=== PATIENT | female | born 2000 | race Caucasian/White ===

== ENCOUNTER 2021-03-05 15:36 | Inpatient (IN) ==
[2021-03-05] MEDS ORDERED: DEXTROSE 5%-LACTATED RINGERS 1,000 ML IV PRN (15:41)
[2021-03-05] MEDS ORDERED: OXYTOCIN/0.9 % SODIUM CHLORIDE 30 UNITS/500 ML BAG IV ONE (15:41)
[2021-03-05] MEDS ORDERED: RINGER'S SOLUTION,LACTATED 1,000 ML IV ONE (15:41)
[2021-03-05] MEDS ORDERED: ONDANSETRON 4 MG TAB.RAPDIS PO PRN (15:41)
[2021-03-05 16:14] LABS: Random Urine Total Protein Less than 6.0 mg/dL (0-12)
[2021-03-05 16:15] LABS: Hematocrit 39.4 % (37.0-47.0); Hemoglobin 12.1 gm/dL (12.5-16.0); Mean Cell Volume 84.7 fl (78-100); Mean Corpuscular Hgb Conc 30.7 g/dl (32-36); Mean Platelet Volume 10.9 fl (8-12.5); Neutrophil # 6.1 K/mm3 (1.3-6.0); Neutrophil % 62.1 % (42-75.0); Platelet Count 210 K/mm3 (150-450); Red Blood Count 4.65 M/mm3 (4.2-5.4); Red Cell Distribution Width 14.8 % (11.5-14.0); White Blood Count 9.8 K/mm3 (4.0-10.5)
[2021-03-05 16:16] LABS: Albumin * 2.7 gm/dl (3.4-5.0); Anion Gap 13.7 mmol/L (6.8-13.8); BUN/Creatinine Ratio 8.8 (9.0-21.6); Bilirubin, Total 0.3 mg/dL (0.0-1.1); Ca. Corrected For Albumin 9.8 mg/dL (8.4-10.2); Calcium * 9.1 mg/dL (7.9-10.9); Carbon Dioxide 24.4 mmol/L (24-32.6); Potassium 4.1 mmol/L (3.4-4.6); Total Protein 6.8 gm/dL (6.2-8.2)
--- NOTE | 2021-03-05 17:23 | HP ---
Chief Complaint - Chief Complaint Date of Service: 03/05/21 Time of Service: 17:15 Chief Complaint: induction of labor for GHTN History of Present Illness: 20 yo at 39w4d admitted for induction/augmentation of labor due to GHTN. Patient c/o irregular, mild contractions over the past couple days. Admits to increased edema. Denies HUTCHINSON, visual changes, epigastric pain. This complicated by GHTN. RH positive Rubella immune GBS negative Medical History (Last Reviewed 03/05/21 @ 17:18 by Denilson Marcus DO) No pertinent past medical history Surgical History: Surgical History (Last Reviewed 03/05/21 @ 17:18 by Denilson Marcus DO) [place] teeth extracted Family History: Family History (Last Reviewed 03/05/21 @ 17:18 by Denilson Marcus DO) Father Depression Bipolar disorder Hypertension Anxiety Sister Bipolar disorder Anxiety Depression Mother Anxiety Depression Bipolar disorder Hypertension Social History: (Last Reviewed 03/05/21 @ 17:18 by Denilson Marcus DO) Social History: Marital status: Single household members: family current occupational status: employed Highest level of school completed/degree received: some college, no degree Service: No Tobacco: Smoking Status: Former smoker Alcohol: alcohol intake: current alcohol intake frequency: a few times a week details: none with Substance Use: substance use type: does not use Dietary Habits: caffeine: Yes caffeine comment: 1/day avg some days 3 Type: carbonated beverages Exercise: Physical activity type: none Personal Safety: victim of physical abuse: No victim of emotional abuse: No victim of sexual abuse: No Review Of Systems (GEN) - Review of Systems Generalized/Overall Review: Present: No Symptoms Reported EENTM: Present: No Symptoms Reported Respiratory: Present: No Symptoms Reported Cardiac: Present: No Symptoms Reported Abdominal: Present: Other - mild contractions Genitourinary: Present: No Symptoms Reported Musculoskeletal: Present: No Symptoms Reported Neurological: Present: No Symptoms Reported Skin: Present: No Symptoms Reported Allergies/Adverse Reactions: Allergies Allergy/AdvReac Type Severity Reaction Status Date / Time Penicillins Allergy Intermediate rash Verified 03/05/21 15:09 Home Medications: HOME MEDICATIONS prenat.vits,elpidio,gap-xllo-hmmup 1 tab PO DAILY 09/26/18 [Last Taken 03/05/21] valacyclovir 500 mg tablet 500 mg PO BID #60 tab 01/29/21 [Last Taken 03/04/21] Exam - Exam Vital Signs: Vital Signs - Last Taken Temp 36.7 C 03/05/21 16:20 Pulse 75 03/05/21 16:20 Resp 18 03/05/21 16:20 BP 122/85 03/05/21 16:20 Pulse Ox 100 03/05/21 16:20 Constitutional: Present: Alert, Oriented x3, Cooperative, No distress ENT Exam: Present: hearing grossly normal Neck: Present: non-tender, trachea midline. Absent: thyromegaly Breasts: Present: Exam deferred Respiratory: Present: lungs clear, no respiratory distress Cardiovascular/Chest: Present: normal peripheral pulses, regular rate, rhythm, edema Abdomen: Present: soft, nontender, no rebound tenderness, other - gravid /Rectal: Present: Other - cervix /-1 Extremity: Present: no calf tenderness, lower extremity edema - 2+ to knee, DTR 3/4, no clonus Skin Exam: Present: normal color, warm/dry, no cyanosis Lymphatic: Present: no adenopathy Neurologic: Present: alert, normal mood/affect, oriented x 3 Appearance: Present: appropriate appearance, appropriate insight Eye contact: Present: cooperative, good eye contact Thoughts: Present: normal thought pattern, normal mood /affect Diagnostic Studies: Abnormal Lab Results 03/05/21 03/05/21 03/05/21 Range/Units 15:40 15:54 15:54 Hgb 12.1 L (12.5-16.0) gm/dL MCH 26.0 L (27-31) pg MCHC 30.7 L (32-36) g/dl RDW 14.8 H (11.5-14.0) % Immature Gran # (Auto) 0.04 H (0.000-0.0310) K/mm3 Monocytes % 9.4 H (0.0-9) % Neutrophils # 6.1 H (1.3-6.0) K/mm3 BUN/Creatinine Ratio 8.8 L (9.0-21.6) Alkaline Phosphatase 207 H (50-170) U/L Albumin 2.7 L (3.4-5.0) gm/dl Ur Random Creatinine 33.4 L (60-200) mg/dL Laboratory Results WBC 9.8 K/mm3 (4.0-10.5) 03/05/21 15:54 RBC 4.65 M/mm3 (4.2-5.4) 03/05/21 15:54 Hgb 12.1 gm/dL (12.5-16.0) L 03/05/21 15:54 Hct 39.4 % (37.0-47.0) 03/05/21 15:54 MCV 84.7 fl (78-100) 03/05/21 15:54 MCH 26.0 pg (27-31) L 03/05/21 15:54 MCHC 30.7 g/dl (32-36) L 03/05/21 15:54 RDW 14.8 % (11.5-14.0) H 03/05/21 15:54 Plt Count 210 K/mm3 (150-450) 03/05/21 15:54 MPV 10.9 fl (8-12.5) 03/05/21 15:54 Immature Gran % (Auto) 0.40 % (0.001-0.429) 03/05/21 15:54 Immature Gran # (Auto) 0.04 K/mm3 (0.000-0.0310) H 03/05/21 15:54 Neutrophils % 62.1 % (42-75.0) 03/05/21 15:54 Lymphocytes % 27.5 % (20-51) 03/05/21 15:54 Monocytes % 9.4 % (0.0-9) H 03/05/21 15:54 Eosinophils % 0.4 % (0.0-3.0) 03/05/21 15:54 Basophils % 0.2 % (0.0-1.0) 03/05/21 15:54 Nucleated RBC % 0.0 k/mm3 (0-1) 03/05/21 15:54 Neutrophils # 6.1 K/mm3 (1.3-6.0) H 03/05/21 15:54 Lymphocytes # 2.68 k/mm3 (1.5-3.5) 03/05/21 15:54 Monocytes # 0.9 k/mm3 (0.0-1.0) 03/05/21 15:54 Eosinophils # 0.0 k/mm3 (0.0-0.7) 03/05/21 15:54 Absolute Basophils 0.0 k/mm3 (0.0-0.1) 03/05/21 15:54 Sodium 139 mmol/L (132-142) 03/05/21 15:54 Plasma Sodium 139 mmol/L (130-142) 03/05/21 15:54 Potassium 4.1 mmol/L (3.4-4.6) 03/05/21 15:54 Chloride 105 mmol/L (97-106) 03/05/21 15:54 Carbon Dioxide 24.4 mmol/L (24-32.6) 03/05/21 15:54 Anion Gap 13.7 mmol/L (6.8-13.8) 03/05/21 15:54 BUN 7 mg/dL (3-23) 03/05/21 15:54 Creatinine 0.80 mg/dL (0.4-1.4) 03/05/21 15:54 Est GFR (Non-Af Amer) 95 mL/min (60-130) 03/05/21 15:54 BUN/Creatinine Ratio 8.8 (9.0-21.6) L 03/05/21 15:54 Random Glucose 93 mg/dL (70-110) 03/05/21 15:54 Calcium 9.1 mg/dL (7.9-10.9) 03/05/21 15:54 Calcium Adj for Albumin 9.8 mg/dL (8.4-10.2) 03/05/21 15:54 Total Bilirubin 0.3 mg/dL (0.0-1.1) 03/05/21 15:54 AST 23 U/L (0-48) 03/05/21 15:54 ALT 24 U/L (19-67) 03/05/21 15:54 Alkaline Phosphatase 207 U/L (50-170) H 03/05/21 15:54 Total Protein 6.8 gm/dL (6.2-8.2) 03/05/21 15:54 Albumin 2.7 gm/dl (3.4-5.0) L 03/05/21 15:54 Ur Random Creatinine 33.4 mg/dL (60-200) L 03/05/21 15:40 U Random Total Protein Less than 6.0 mg/dL (0-12) 03/05/21 15:40 U [place] Prot/Creat Ratio 180 mg/gm (0-199) 03/05/21 15:40 Assessment/Plan - Assessment/Plan (1) Gestational hypertension Assessment: Admit for pitocin augmentation of labor. Preeclampsia labs WNL. Epidural PRN. Problem: Acute Qualifiers: Trimester: third trimester Qualified Code(s): O13.3 - Gestational [-induced] hypertension without significant proteinuria, third trimester (2) First stage of labor established Problem: Acute
--- NOTE | 2021-03-05 18:36 | PN ---
Progess Note - Interim Date: 03/05/21 Time: 18:34 Narrative: 03/05/21 18:34 Patient rating most of her contractions mild with occasional moderate 1. Blood pressures labile ranging from 120s over 80s to 170/93. Pitocin at 4 mu/min. FHT: 130 baseline, moderate variability with good accelerations. Earlier moderate variable decelerations. Contractions q 2-3 min Cervix: 4/90/-1, AROM-clear Impression: Intrauterine at 39 4/7 weeks augmentation/induction of labor for gestational hypertension. Plan: We will start IV fluid bolus and prepare for epidural placement when contractions become more uncomfortable.
[2021-03-05] MEDS ORDERED: BUPIVACAINE HCL/0.9 % NACL/PF 250 ML EP PRN (18:43)
[2021-03-05] MEDS ORDERED: NALOXONE HCL 1 MG/1 ML SYRG IV PRN (18:43)
[2021-03-05] MEDS ORDERED: ONDANSETRON HCL/PF 2 MG/ML VIAL IV PRN (18:43)
[2021-03-05] MEDS ORDERED: BUPIVACAINE HCL/PF 30 ML VIAL EP SCH (18:45)
--- NOTE | 2021-03-05 19:10 | ANES ---
Anesthesia Pre Procedure Eval Vitals/Labs: Last Vital Signs Temp 36.7 C 03/05/21 16:20 Pulse 75 03/05/21 16:20 Resp 18 03/05/21 16:20 BP 122/85 03/05/21 16:20 Pulse Ox 100 03/05/21 16:20 HOME MEDICATIONS prenat.vits,elpidio,may-mtrq-qlanl 1 tab PO DAILY 09/26/18 [Last Taken 03/05/21] valacyclovir 500 mg tablet 500 mg PO BID #60 tab 01/29/21 [Last Taken 03/04/21] Allergies/Adverse Reactions: Allergies Allergy/AdvReac Type Severity Reaction Status Date / Time Penicillins Allergy Intermediate rash Verified 03/05/21 15:09 - Planned Procedure Planned Procedure: gestational hyertension possible pre eclampsia Medical History (Last Reviewed 03/05/21 @ 17:18 by Denilson Marcus DO) No pertinent past medical history Surgical History (Last Reviewed 03/05/21 @ 17:18 by Denilson Marcus DO) [place] teeth extracted Family History (Last Reviewed 03/05/21 @ 17:18 by Denilson Marcus DO) Father Depression Bipolar disorder Hypertension Anxiety Sister Bipolar disorder Anxiety Depression Mother Anxiety Depression Bipolar disorder Hypertension - Anesthesia Assessment and Plan ASA Class: PS, II Anesthesia Type Plan: Epidural
--- NOTE | 2021-03-05 19:36 | ANES ---
Anesthesia Procedure Note Procedure Note: ANESTHESIA PROCEDURE NOTE Date of Procedure: 03/05/2021. Time of procedure: 1924. Performed by: James Walker CRNA Claims Account Manager: None. Preprocedure diagnosis: Active labor. Post procedure diagnosis: Same. Procedure: Insertion of labor epidural. Indications: The patient is a 20-year-old female in active labor requesting labor epidural for pain management. Findings: See below. Details of the procedure: The patient was placed in a sitting position. DuraPrep as well as Betadine swabs X3 was applied to the patient's back. Patient was then draped in a sterile fashion. Lidocaine 1% was infiltrated to the skin and subcutaneous tissues at the level of the L3-4 interspace. The epidural space was identified using a 18-gauge Tuohy needle with eihy-[id number] technique. Epidural catheter was inserted to a depth of 11 centimeters at skin. Negative test dose was elicited using 3 mL of 1.5% preservative-free lidocaine plus epinephrine 1 200,000. The epidural catheter was then taped and secured in place. A loading dose of 8 mL of 0.25% preservative-free bupivacaine was administered to the epidural catheter after negative aspiration for blood and CSF. EBL: Minimal. Fluids: N/A. Specimen: N/A. Post procedure condition: The patient tolerated the procedure well. No complications were noted. Thank you for this consultation. James Walker CRNA
--- NOTE | 2021-03-05 19:37 | ANES ---
Post Anesthesia Assessment - Vital Signs Vitals: Last Vital Signs Temp 36.7 C 03/05/21 16:20 Pulse 75 03/05/21 16:20 Resp 18 03/05/21 16:20 BP 122/85 03/05/21 16:20 Pulse Ox 100 03/05/21 16:20 Airway Patency: Normal - Mental Status Level Of Consciousness: Awake - N/V Assessment Nausea/Vomiting Presence: None Dehydration:: No
[2021-03-05] MEDS ORDERED: CALCIUM CARBONATE 500 MG TAB.CHEW PO ONE (22:35)
[2021-03-06] MEDS ORDERED: OXYTOCIN/0.9 % SODIUM CHLORIDE 30 UNITS/500 ML BAG IV ONE (02:09)
[2021-03-06] MEDS ORDERED: BISACODYL 10 MG SUPP.RECT RC PRN (02:09)
[2021-03-06] MEDS ORDERED: GLYCERIN/WITCH HAZEL LEAF 40 APPL BOX TP PRN (02:09)
[2021-03-06] MEDS ORDERED: IBUPROFEN 800 MG TABLET PO PRN (02:09)
[2021-03-06] MEDS ORDERED: BENZOCAINE/MENTHOL 81 SPRAY CAN TP PRN (02:09)
[2021-03-06] MEDS ORDERED: HYDROCORTISONE 30 APPL TUBE TP PRN (02:09)
[2021-03-06] MEDS ORDERED: oxyCODONE HCL/ACETAMINOPHEN 1 TAB TABLET PO PRN (02:09)
[2021-03-06] MEDS ORDERED: SENNOSIDES 8.6 MG TABLET PO PRN (02:09)
--- NOTE | 2021-03-06 02:17 | OR ---
Operative Report - Dictated Report Narrative: Spontaneous vaginal delivery of viable female at 0138 on 03/06/2021 with Apgars 6, 7, 9, weighing 3834 g in RENEA position with terminal meconium. There were intermittent late decelerations proceeding delivery and although there was no shoulder dystocia there was approximately 60 seconds between delivery of head and rest of body. Cord clamping delayed 30 seconds and baby was transferred to warmer due to poor color and tone. Placenta delivered complete, intact, with three vessel cord Estimated blood loss: 100 mL Anesthesia: Epidural Lacerations: None History for MU History for Definition: * The number of deliveries resulting in a live the patient experienced prior to current hospitalization * The previous delivery of live twins or any live multiple gestation is consid ered one live event. *If primagravida or nulliparous is documented select zero for the number of previous live births. Live Events: Live Events: 0
[2021-03-06] MEDS: IBUPROFEN 800 MG TABLET PO PRN ×3 (02:32→19:28)
[2021-03-06] MEDS: DOCUSATE SODIUM 100 MG CAPSULE PO SCH ×2 (10:16→21:12)
[2021-03-06] MEDS: ACETAMINOPHEN 325 MG TABLET PO PRN (16:23)
[2021-03-06] MEDS ORDERED: ACETAMINOPHEN 325 MG TABLET PO PRN (18:33)
[2021-03-07] MEDS: ACETAMINOPHEN 325 MG TABLET PO PRN ×2 (02:28→08:41)
[2021-03-07] MEDS: DOCUSATE SODIUM 100 MG CAPSULE PO SCH (08:40)
[2021-03-07 09:02] VITALS: BP 107/65
--- NOTE | 2021-03-07 09:53 | PN ---
Subjective - Date and Time Seen Date: 03/07/21 Time: 09:48 Objective - Vitals Vitals: Last Vital Signs Temp 36.7 C 03/07/21 08:00 Pulse 102 H 03/07/21 08:00 Resp 18 03/07/21 08:00 BP 107/65 03/07/21 08:00 Pulse Ox 100 03/07/21 08:00 Patient denies complaints. Specifically denies headache, visual changes, or epigastric pain. Breast-feeding Lochia wnl abdomen - soft, nontender Uterus -firm, at umbilicus - 1 No calf tenderness Impression: day #1 - s/p spontaneous vaginal delivery. Gestational hypertension-resolved. Baby was transferred to [facility] for respiratory issues-Mom would like to be discharged early to be up with her baby. Plan: Continue routine care. Preeclampsia precautions. Follow-up in 2 weeks for blood pressure check/ visit. Cauti Physician Documentation - Urinary Catheter Management Urethral ([place]) Date of Insertion: 03/05/21 Time of Insertion: 20:31 Date of Removal: 03/06/21 Time of Removal: 00:40 Assessment/Plan - Problems/Diagnosis (1) Gestational hypertension Problem: Resolved Qualifiers: Trimester: third trimester Qualified Code(s): O13.3 - Gestational [-induced] hypertension without significant proteinuria, third trimester (2) First stage of labor established Problem: Resolved
--- NOTE | 2021-03-07 09:55 | DS ---
OB Discharge Summary (1) Gestational hypertension Status: Resolved Qualifiers: Trimester: third trimester Qualified Code(s): O13.3 - Gestational [-induced] hypertension without significant proteinuria, third trimester (2) First stage of labor established Status: Resolved (3) Vaginal delivery Status: Resolved Delivery Date: 03/06/21 Delivery Time: 01:38 :: 2 Para:: 1 Gestational weeks:: 39 Gestational days:: 5 Intrapartum Procedures: Spontaneous Vaginal Delivery, Delivered, Anesthesia - Epidural /OP Complications: GHTN Discharge Diagnosis: Term -Delivered, Gestational Hypertension, Rubella Immune - Discharge Information Date of Discharge: 03/07/21 Hospital Course: 20-year-old 2 now para 1 admitted at 39-4/7 weeks in early labor complicated by gestational hypertension. Patient's labor was uneventful. Mother had a short second stage of labor but required approximately a full minute to deliver the head and body. course for mom was uncomplicated. The baby, however, had respiratory issues from which never fully resolved and required transfer to [facility] for further evaluation/treatment. Because of this mother desires early discharge in order to be with her baby. She was given routine discharge instructions with the addition of preeclampsia precautions. She is to follow-up in the office in 2 weeks for blood pressure check and visit. Discharge Location: Home Disposition: Home self-care Condition: Good Activity on Discharge:: Activity as tolerated, Pelvic Rest Discharge Diet: General/regular food Additional Patient Instructions (free text): Carlos will follow up with Dr. Marcus in 1 week on February at 10:45. Complete Home Medications List: Complete Home Medication List: prenat.vits,elpidio,foh-ywjp-nwtek 1 tab PO DAILY 09/26/18 valacyclovir 500 mg tablet 500 mg PO BID #60 tab 01/29/21 - Plan Discharge to:: Home Follow up in office in:: 2 weeks - Information Weight (Grams): 3,834 Sex: Female Score 1 min: 6 Score 5 min: 7 Complications: Other Other Complications: Terminal meconium, intermittent late decelerations. Infant with initial respiratory distress.
== END 2021-03-07 11:30 | disposition home or self-care (01) | DRG 807 ==
LOC: OB 15:36
PROVIDERS: ADMIT Obstetrics & Gynecology; ATTEND Obstetrics & Gynecology